=== PATIENT | female | born 1970 | race Caucasian/White ===

== ENCOUNTER 2016-10-11 20:37 | Inpatient (IN) ==
[2016-10-11] MEDS ORDERED: *HR* HYDROmorphone (PF) 1 MG/ML SYRINGE IM ONE (20:54)
[2016-10-11] MEDS ORDERED: Ondansetron ODT 4 MG TAB.RAPDIS SL ONE (20:58)
--- NOTE | 2016-10-11 20:59 | Emergency Department Note ---
Disposition Clinical Impression: Pancreatitis Disposition: Admitted As Inpatient Condition: Good Time of Disposition: 00:22 Abdominal Pain HPI - General Chief Complaint: ED Abdominal Pain Stated Complaint: lower right abdominal pain Time Seen by Provider: 10/11/16 20:46 Source: patient Mode of arrival: wheelchair Limitations: no limitations Nursing Notes Reviewed: Yes Vital Signs Reviewed: Yes - History of Present Illness HPI Narrative: Patient presents to the ED with the chief complaint of right-sided abdominal pain. Patient states that she has had chronic pain type syndromes for the last several years. She has a history of fibromyalgia and takes Soma and benzodiazepines. She has been living in [place] for the last 12-14 years. She states that since September 18 of this year. She has been having abdominal issues. She originally started having suprapubic pain at that time. She went to an emergency department in [place] on September 19 and had normal blood work, but a CT scan showed bladder wall thickening. She reports no dysuria but she has had frequency and urgency. States she was given some antibiotics. The pain has since continued intermittently. Associated with intermittent fevers, but none within the last 2 weeks. She has also been having decreased appetite, intermittent vomiting and diarrhea. States anytime she eats anything it will "go straight through me." No melena or hematochezia. She states that she was reaching for her headphones today and had the acute onset of right upper quadrant pain. She describes it as achy, but also sharp and stabbing. Located just underneath her costal margin on the right. Worse with movement. Just complains of right lower abdominal pain with similar descriptions. No fevers in the last few days. States she is only had crackers in the last week for food , although she had soup today. She has had previous small bowel obstruction with subsequent partial small bowel resection. She states that she does not remember what that felt like but this could be similar. She also states that she is very anxious, but has not taken any of her benzodiazepines today. She also reports that on September 22. She had her IUD removed which had been in place for 4 years. She had a very small amount of vaginal bleeding after that, but has had none since September 23. No further vaginal bleeding or discharge. No new recent sexual partners. Pain Scale: 9 - Related Data Home Medications Medication Instructions Recorded Confirmed Atenolol [Tenormin] 50 mg PO DAILY 10/11/16 10/11/16 Carisoprodol [Soma] 350 mg PO 10/11/16 Tramadol HCl [Ultram] 100 mg PO QID PRN 10/11/16 10/11/16 clonazePAM [Clonazepam] 1 mg PO 10/11/16 Allergies Allergy/AdvReac Type Severity Reaction Status Date / Time promethazine [From Phenergan] Allergy Hallucinati Verified 10/11/16 20:45 ng All systems ED: reviewed and negative except as stated. Constitutional: Reports: fever (Intermittent) Eyes: Denies: vision change Cardiovascular: Denies: chest pain, palpitations, dyspnea on exertion Respiratory: Denies: dyspnea Gastrointestinal: Reports: abdominal pain, nausea (Intermittent), vomiting ( Intermittent), diarrhea. Denies: melena, hematochezia Genitourinary: Reports: urgency, frequency Musculoskeletal: Denies: back pain Integumentary: Denies: rash Neurological: Denies: headache Psychiatric: Reports: anxiety Abdominal Pain PMH - Past Medical History Medical history: Reports: fibromyalgia, hypertension, thyroid disease Female Surgical History: Reports: appendectomy, , Tonsillectomy, other Psychiatric history: Reports: anxiety - Social History Smoking status: Current every day smoker Alcohol use: Reports: occasionally Drug use: Reports: none Physical Exam - General Limitations: no limitations General appearance: alert, in no apparent distress - Head Head exam: atraumatic, normocephalic, normal inspection - Eye Eye exam: Present: normal appearance, PERRL, EOMI - ENT ENT exam: normal exam, normal oropharynx, mucous membranes moist - Neck Neck exam: Present: normal inspection, full ROM, trachea midline - Chest Chest inspection: Present: normal inspection, symmetric chest wall rise - Respiratory Respiratory exam: Present: normal lung sounds bilaterally - Cardiovascular Cardiovascular exam: Present: regular rate, normal rhythm, normal heart sounds - Abdominal Exam Abdominal exam: Present: soft, tenderness, Anaya's sign. Absent: distention, guarding, rebound Abdominal tenderness: Present: RUQ, suprapubic, moderate - Extremities Exam Extremities exam: Present: normal inspection, full ROM. Absent: tenderness, pedal edema - Back Exam Back exam: Present: normal inspection, full ROM. Absent: tenderness - Neurological Exam Neurological exam: Present: alert, oriented X3 - Psychiatric Psychiatric exam: Present: anxious - Skin Skin exam: Present: warm, dry, intact, normal color Course Course Narrative: 46-year-old female with very convoluted story of abdominal pain since the seventh of this month. She is tender in her epigastrium or right upper quadrants. We will check labs and CT her belly and give pain control. Disposition pending - Reevaluation(s) Reevaluation #1: Lipase is elevated, CT is normal, pain is better under control, however, not completely gone, we will admit for new onset pancreatitis. No history of alcohol abuse Vital Signs Temperature 97.5 F L 10/11/16 20:39 Pulse Rate 96 10/11/16 20:39 Respiratory Rate 18 10/11/16 20:39 Blood Pressure 141/93 10/11/16 20:39 O2 Sat by Pulse Oximetry 97 10/11/16 20:39 Temperature 97.5 F L 10/11/16 20:39 Pulse Rate 58 10/11/16 22:50 Respiratory Rate 18 10/11/16 22:50 Blood Pressure 160/92 10/11/16 22:50 O2 Sat by Pulse Oximetry 96 10/11/16 22:05 Oxygen Delivery Oxygen Delivery Room Air Abdominal Pain - Medical Records Medical records reviewed: Yes I reviewed the patient's medical records. - Lab Data Lab results reviewed: Yes I reviewed the patient's lab results. Result diagrams: 10/11/16 21:47 10/11/16 21:47 Lab Results 10/11/16 10/11/16 10/11/16 Range/Units 20:55 20:55 21:47 WBC 4.5 (4.3-11.1) K/mcL RBC 4.16 (3.82-4.97) M/mcL Hgb 12.9 (11.5-15.4) g/dL Hct 39.0 (35.3-44.9) % MCV 93.8 (83.0-100.0) fL MCH 31.0 (28.0-33.3) pg MCHC 33.1 (31.6-35.5) g/dL RDW 12.5 (11.5-14.5) % Plt Count 154 (140-400) K/mcL MPV 10.5 (9.4-12.4) fL Immature Gran % 0.2 (0-4) % Seg Neutrophils % 30.7 % Lymphocytes % 57.9 % Monocytes % 8.5 % Eosinophils % 1.8 % Basophils % 0.9 % Neutrophils # 1.4 L (1.6-8.9) K/mcL Lymphocytes # 2.6 (0.6-4.6) K/mcL Monocytes # 0.4 (0.0-1.3) K/mcL Eosinophils # 0.1 (0.0-0.6) K/mcL Basophils # 0.0 (0.0-0.2) K/mcL Sodium (136-145) mEq/L Potassium (3.5-4.5) mEq/L Chloride (98-109) mEq/L Carbon Dioxide (19-29) mEq/L BUN (7-20) mg/dL Creatinine (0.57-1.11) mg/dL Est GFR ( Amer) (> 60) Est GFR (Non-Af Amer) (> 60) BUN/Creatinine Ratio (6-26) Glucose (70-99) mg/dL Calculated Osmolality (280-300) Calcium (8.6-10.8) mg/dL Total Bilirubin (0.2-1.2) mg/dL Direct Bilirubin (0.0-0.5) mg/dL Indirect Bilirubin (0.0-1.2) mg/dL AST (5-34) Units/L ALT (0-55) Units/L Alkaline Phosphatase (38-126) Units/L Serum Total Protein (6.0-8.3) g/dL Albumin (3.5-5.0) g/dL Globulin (2.4-3.5) g/dL Albumin/Globulin Ratio (1.1-2.2) Lipase (8-78) Units/L Urine Color Yellow (Yellow) Urine Clarity Clear (Clear) Urine pH 7.0 (5.0-8.0) pH Units Ur Specific [place] 1.007 L (1.010-1.025) Urine Protein Negative (Neg-Trace) mg/dL Urine Glucose (UA) Normal (Normal) mg/dL Urine Ketones Negative (Negative) mg/dL Urine Blood Trace H (Negative) Urine Nitrite Negative (Negative) Urine Bilirubin Negative (Negative) Urine Urobilinogen Normal (Normal) mg/dL Ur Leukocyte Esterase Negative (Negative) Urine Microscopic RBC 0-3 (0-3) per hpf Urine Microscopic WBC 0-3 (0-3) per hpf Ur Squamous Epith Cells Many H (None-Few) per lpf Urine Bacteria None Seen (None-Few) per hpf Hyaline Casts None Seen (None-Few) per lpf Ur Culture Indicated? NO (NO) Urine Test Negative (Negative) 10/11/16 Range/Units 21:47 WBC (4.3-11.1) K/mcL RBC (3.82-4.97) M/mcL Hgb (11.5-15.4) g/dL Hct (35.3-44.9) % MCV (83.0-100.0) fL MCH (28.0-33.3) pg MCHC (31.6-35.5) g/dL RDW (11.5-14.5) % Plt Count (140-400) K/mcL MPV (9.4-12.4) fL Immature Gran % (0-4) % Seg Neutrophils % % Lymphocytes % % Monocytes % % Eosinophils % % Basophils % % Neutrophils # (1.6-8.9) K/mcL Lymphocytes # (0.6-4.6) K/mcL Monocytes # (0.0-1.3) K/mcL Eosinophils # (0.0-0.6) K/mcL Basophils # (0.0-0.2) K/mcL Sodium 140 (136-145) mEq/L Potassium 3.7 (3.5-4.5) mEq/L Chloride 110 H (98-109) mEq/L Carbon Dioxide 21 (19-29) mEq/L BUN 10 (7-20) mg/dL Creatinine 0.94 (0.57-1.11) mg/dL Est GFR ( Amer) > 60 (> 60) Est GFR (Non-Af Amer) > 60 (> 60) BUN/Creatinine Ratio 11 (6-26) Glucose 81 (70-99) mg/dL Calculated Osmolality 288 (280-300) Calcium 8.5 L (8.6-10.8) mg/dL Total Bilirubin 0.6 (0.2-1.2) mg/dL Direct Bilirubin 0.2 (0.0-0.5) mg/dL Indirect Bilirubin 0.4 (0.0-1.2) mg/dL AST 17 (5-34) Units/L ALT 16 (0-55) Units/L Alkaline Phosphatase 58 (38-126) Units/L Serum Total Protein 6.7 (6.0-8.3) g/dL Albumin 3.5 (3.5-5.0) g/dL Globulin 3.2 (2.4-3.5) g/dL Albumin/Globulin Ratio 1.1 (1.1-2.2) Lipase 240 H (8-78) Units/L Urine Color (Yellow) Urine Clarity (Clear) Urine pH (5.0-8.0) pH Units Ur Specific [place] (1.010-1.025) Urine Protein (Neg-Trace) mg/dL Urine Glucose (UA) (Normal) mg/dL Urine Ketones (Negative) mg/dL Urine Blood (Negative) Urine Nitrite (Negative) Urine Bilirubin (Negative) Urine Urobilinogen (Normal) mg/dL Ur Leukocyte Esterase (Negative) Urine Microscopic RBC (0-3) per hpf Urine Microscopic WBC (0-3) per hpf Ur Squamous Epith Cells (None-Few) per lpf Urine Bacteria (None-Few) per hpf Hyaline Casts (None-Few) per lpf Ur Culture Indicated? (NO) Urine Test (Negative) - Radiology Data Radiology results reviewed: Yes I reviewed the patient's radiology results. - EKG Data EKG attestation: Yes I reviewed and interpreted this EKG. EKG results narrative: Sinus bradycardia, rate 43, PA interval 143, QRS 88, QTC 374, normal axis, no ischemic changes Attestation Statement - Attestation Attestation: I, Manjit León, examined this patient and my medical decision-making was reviewed with the RUBBER MOLDER/PA/Advanced Practice Nurse/Resident Physician. I agree with the documented findings, disposition and treatment plan as described except to the extent set forth below. 46-year-old female presents with multiple complaints. Patient states that she has had epigastric and right upper quadrant pain intermittently over the past 2- 3 weeks. Patient states she was diagnosed as possible gallbladder disease however she did not obtain an ultrasound at that time. He has been eating soups since that time however she has continued pain with by mouth intake. Patient also reports a history of persistent diarrhea over the past few months. She denies hematochezia or melena. No history of Crohn's disease or ulcerative colitis. On physical exam the patient has tenderness to palpation of the epigastrium in the right upper quadrant as well as suprapubic region. Patient does not have rigidity, guarding, or rebound however. Laboratory evaluation reveals elevated lipase 3 times normal limits. AST, ALT and alkaline phosphatase are within normal limits. Urinalysis does not show evidence of urinary tract infection. CT of the abdomen did not show acute surgical pathology. Patient is comfortable with the plan for admission to the hospital for IV fluids and further care and evaluation of her pancreatitis with likely ultrasound for further evaluation of possible gallbladder disease.
[2016-10-11 21:20] LABS: Bilirubin,Urine Negative (Negative); Blood,Urine Trace (Negative); Clarity,Urine Clear (Clear); Color,Urine Yellow (Yellow); Glucose,Urine (UA) Normal (Normal); Ketones,Urine Negative (Negative); Leukocyte Esterase,Urine Negative (Negative); Nitrite,Urine Negative (Negative); Protein,Urine Negative (Neg-Trace); Specific Gravity,Urine 1.007 (1.010-1.025); Urobilinogen,Urine Normal (Normal)
[2016-10-11 21:22] LABS: Bacteria,Urine None Seen per hpf (None-Few); Hyaline Casts,Urine None Seen per lpf (None-Few); RBC,Urine 0-3 per hpf (0-3); Squamous Epithelial Cell,Urine Many per lpf (None-Few); WBC,Urine 0-3 per hpf (0-3)
[2016-10-11] MEDS ORDERED: 0.9 % Sodium Chloride 1,000 ML IVC ONE (21:27)
[2016-10-11] MEDS ORDERED: GI Cocktail 40 ML EACH PO ONE (21:27)
[2016-10-11] MEDS ORDERED: *HR* LORazepam 2 MG/ML VIAL IVP ONE (21:46)
[2016-10-11 22:05] LABS: Basophils % 0.9 %; Eosinophils # 0.1 K/mcL (0.0-0.6); Eosinophils % 1.8 %; Hemoglobin 12.9 g/dL (11.5-15.4); Immature Granulocytes % 0.2 % (0-4); Lymphocytes # 2.6 K/mcL (0.6-4.6); Lymphocytes % 57.9 %; Mean Corpuscular HGB Conc 33.1 g/dL (31.6-35.5); Mean Corpuscular Volume 93.8 fL (83.0-100.0); Mean Platelet Volume 10.5 fL (9.4-12.4); Monocytes # 0.4 K/mcL (0.0-1.3); Monocytes % 8.5 %; Neutrophils # 1.4 K/mcL (1.6-8.9); Platelet Count 154 K/mcL (140-400); Red Blood Count 4.16 M/mcL (3.82-4.97); Red Cell Distribution Width 12.5 % (11.5-14.5); Segmented Neutrophils % 30.7 %
[2016-10-11 22:21] LABS: Alanine Aminotransferase 16 Units/L (0-55); Albumin 3.5 g/dL (3.5-5.0); Albumin/Globulin Ratio 1.1 (1.1-2.2); Alkaline Phosphatase 58 Units/L (38-126); Aspartate Amino Transferase 17 Units/L (5-34); BUN/Creatinine Ratio 11 (6-26); Bilirubin,Direct 0.2 mg/dL (0.0-0.5); Bilirubin,Indirect 0.4 mg/dL (0.0-1.2); Bilirubin,Total 0.6 mg/dL (0.2-1.2); Blood Urea Nitrogen 10 mg/dL (7-20); Calcium 8.5 mg/dL (8.6-10.8); Carbon Dioxide 21 mEq/L (19-29); Chloride 110 mEq/L (98-109); Globulin 3.2 g/dL (2.4-3.5); Glucose 81 mg/dL (70-99); Lipase 240 Units/L (8-78); Osmolality,Calculated 288 (280-300); Potassium 3.7 mEq/L (3.5-4.5); Sodium 140 mEq/L (136-145); Total Protein 6.7 g/dL (6.0-8.3); eGFR For African Americans > 60 (> 60); eGFR For Non-African Americans > 60 (> 60)
[2016-10-12] MEDS ORDERED: Carisoprodol 350 MG TABLET PO PRN (00:50)
[2016-10-12] MEDS ORDERED: Naloxone 0.4 MG/ML INJ IVP PRN (00:52)
[2016-10-12] MEDS ORDERED: clonazePAM 1 MG TABLET PO ONE (00:56)
--- NOTE | 2016-10-12 00:58 | Internal Med History&Physical ---
Date of Encounter: 10/12/16 Time of Encounter: 00:57 Assessment and Plan (1) Acute pancreatitis Current visit: Yes Status: Acute IVF, bowel rest with NPO, follow symptoms +/- lipase, check lipid panel a.m, consult GI to w/u etiology. No overt evidence of biliary pathology or alcoholism Qualifiers: Qualified Code(s): K85.90 - Acute pancreatitis without necrosis or infection , unspecified (2) Fibromyalgia syndrome Current visit: Yes Status: Acute continue soma. Also uses klonopin [facility] for sleep Internal Medicine - H&P: HPI Chief complaint: Abdominal pain, anorexia History of present illness: Ms. Garcia is a 46 year old female with hx of fibromyalgia who has recently moved from [place] to [place] to be with her father was triaged at the ED for symptoms of anorexia, abdominal pain for 3-4 weeks. Found to have acute on subacute pancreatitis. Symptoms began around September 18, 2016 where she had not been eating for 3-4 weeks with no appetite that is associated with epigastric quality pain. Sharp quality with radiation into the back. Also noted diarrhea 3-4 weeks associated with intermittent nause and clear emesis. Denies any alcohol hx. No overt gallbladder issues. CT A/P with unremarkable Past Med Surg Social Fam HX - Past Medical History Medical history: fibromyalgia, hypertension, thyroid disease Psychiatric history: anxiety - Social History Smoking Status: Current every day smoker Alcohol use: occasionally Drug use: none Internal Medicine - H&P: Meds Atenolol [Tenormin] 50 mg PO DAILY 10/11/16 [History] Carisoprodol [Soma] 350 mg PO 10/11/16 [History] Tramadol HCl [Ultram] 100 mg PO QID PRN 10/11/16 [History] clonazePAM [Clonazepam] 1 mg PO 10/11/16 [History] Allergies promethazine [From Phenergan] Allergy (Verified 10/11/16 20:45) Hallucinating All Systems PM: A 10-system review of systems was performed and is negative for pertinent findings except as documented above in the HPI. Review of systems: ROS 14 point review of systems reviewed as best as possible given presentation. Pertinent positive or negative as per HPI or otherwise reviewed as negative - Constitutional Vitals: Temp Pulse Resp BP Pulse Ox 97.5 F L 58 0 0/0 96 10/11/16 20:39 10/11/16 22:50 10/12/16 00:48 10/12/16 00:48 10/11/16 22:05 Exam: General - AAO x 3 Psych - Appropriate affect/speech. No agitation Eyes - ISAIAS. Eye lids intact. No scleral icterus ENT - Oral mucosa pink, dentition intact. External ear clear/dry/intact. No thyromegaly Lymphatics - No cervical/inguinal lympadenopathy Neuro - No gross peripheral or central neuro deficits with intact CN 2-12 exam Heart - Sinus. RRR. S1 and S2 present. No added HS/murmurs appreciated. No elevated JVD appreciated. No calf swellings/erythema Lung - Adequate air entry b/l, No crackes/wheezes appreciated GI - epigastric pain, no guarding or rigidity. No hepatosplenomegaly/ascities. BS+ - No CVA/suprapubic tenderness or palpable bladder distension Skin - Intact. No rash/petechiae/ecchymosis. Warm extremities MSK - Joints with normal ROM. No joint swellings Internal Med - H&P Results - Labs CBC & Chem 7: 10/11/16 21:47 10/11/16 21:47
[2016-10-12] MEDS: 0.9 % Sodium Chloride 1,000 ML IVC SCH ×3 (01:36→17:22)
[2016-10-12] MEDS: *HR* Morphine 2 MG/ML SYRINGE IVP PRN ×4 (02:12→14:56)
[2016-10-12 04:39] LABS: Hematocrit 38.2 % (35.3-44.9); Hemoglobin 12.3 g/dL (11.5-15.4); Mean Corpuscular HGB Conc 32.2 g/dL (31.6-35.5); Mean Corpuscular Hemoglobin 30.9 pg (28.0-33.3); Mean Platelet Volume 10.6 fL (9.4-12.4); Platelet Count 134 K/mcL (140-400); Red Blood Count 3.98 M/mcL (3.82-4.97); Red Cell Distribution Width 12.6 % (11.5-14.5); Segmented Neutrophils % 34.8 %
[2016-10-12 04:40] LABS: Basophils % 0.9 %; Eosinophils # 0.1 K/mcL (0.0-0.6); Eosinophils % 1.6 %; Immature Granulocytes % 0.2 % (0-4); Lymphocytes # 2.4 K/mcL (0.6-4.6); Lymphocytes % 55.2 %; Monocytes # 0.3 K/mcL (0.0-1.3); Monocytes % 7.3 %; Neutrophils # 1.5 K/mcL (1.6-8.9)
[2016-10-12 04:55] LABS: BUN/Creatinine Ratio 9 (6-26); Blood Urea Nitrogen 8 mg/dL (7-20); Calcium 7.7 mg/dL (8.6-10.8); Carbon Dioxide 22 mEq/L (19-29); Chloride 113 mEq/L (98-109); Chol/HDL Ratio 5.6 (0-4.9); Cholesterol 140 mg/dL (< 200); Glucose 80 mg/dL (70-99); HDL Cholesterol 25 mg/dL (40-59); LDL Cholesterol,Calculated 92 mg/dL (0-99); Osmolality,Calculated 285 (280-300); Potassium 3.7 mEq/L (3.5-4.5); Sodium 139 mEq/L (136-145); Triglycerides 116 mg/dL (< 150); eGFR For African Americans > 60 (> 60); eGFR For Non-African Americans > 60 (> 60)
[2016-10-12] MEDS: traMADol 50 MG TABLET PO PRN (06:51)
[2016-10-12] MEDS: *HR* Enoxaparin 40 MG/0.4 ML SYRINGE SQ SCH (06:51)
[2016-10-12] MEDS: Pantoprazole 40 MG VIAL IVP SCH (06:51)
[2016-10-12 08:21] LABS: Alanine Aminotransferase 12 Units/L (0-55); Albumin 2.9 g/dL (3.5-5.0); Alkaline Phosphatase 52 Units/L (38-126); Aspartate Amino Transferase 16 Units/L (5-34); Bilirubin,Direct 0.1 mg/dL (0.0-0.5); Bilirubin,Indirect 0.4 mg/dL (0.0-1.2); Bilirubin,Total 0.5 mg/dL (0.2-1.2); Globulin 2.9 g/dL (2.4-3.5); Total Protein 5.8 g/dL (6.0-8.3)
[2016-10-12] MEDS ORDERED: Nicotine 7 MG PATCH.TD24 TD SCH (09:00)
--- NOTE | 2016-10-12 10:20 | Event Note ---
Date of Encounter: 10/12/16 Time of Encounter: 10:20 46-year-old female with history of fibromyalgia, hypertension and hypothyroidism residence with complaints of epigastric and bilateral upper quadrant abdominal pain and diarrhea. Patient has a long-standing history of nonspecific lower abdominal pain, nausea and diarrhea, which have been intermittent with no specific diagnosis. Patient seen and examined at bedside. Reports ongoing abdominal pain, noted to be very irritable with medical staff. Chest-S1, S2 heard. Lungs are clear to auscultation. Abdomen-soft, nondistended, tenderness in epigastrium, left upper quadrant and right upper quadrant CT abdomen/pelvis shows no acute abnormality. Serum lipase noted to be elevated at 650. Liver function tests noted to be normal. Acute pancreatitis-uncertain etiology, to rule out gallstones. Patient denies alcohol use. Right upper quadrant ultrasound shows no evidence of cholelithiasis but shows 7 mm CBD dilation along with mild to moderate gallbladder distention. We will get MRCP to evaluate for choledocholithiasis. Continue bowel rest, IV hydration, supportive care with when necessary antiemetics and pain control. GI consult noted.
--- NOTE | 2016-10-12 11:23 | Gastroenterology Consult Note ---
<Jil Gross - Last Filed: 10/12/16 13:50> Date of Encounter: 10/12/16 Time of Encounter: 12:48 - Assessment and plan (1) Pancreatitis Current Visit: Yes Status: Acute Assessment and plan: Unclear etiology, r/o gb sludge/stones (US ordered), autoimmune. Continue supportive care. Qualifiers: Chronicity: acute Pancreatitis type: unspecified pancreatitis type Acute pancreatitis complication: no infection or necrosis Qualified Code(s): K85.90 - Acute pancreatitis without necrosis or infection, unspecified - Time Spent With Patient Total time spent is greater than 50% in coordination of care (as documented) at patient's floor/unit and/or counseling patient: less than 15 minutes GI History of Present Illness - Data of Consult Patient: new to practice Consult date: 10/12/16 Requesting Physician: Yamila Segura MD - Consult Narrative Reason for consult: pancreatitis History of present illness: Ms. Garcia is a 46 year old female with hx of fibromyalgia who has residences in both [place] and [place] triaged at the ED for symptoms of anorexia, abdominal pain for 3-4 weeks. Found to have acute on subacute pancreatitis. Symptoms began around September 18, 2016 where she had not been eating for 3-4 weeks with no appetite that is associated with epigastric quality pain. Sharp quality with radiation into the back. Also noted diarrhea 3-4 weeks associated with intermittent nause and clear emesis. Denies any alcohol hx. No overt gallbladder issues. CT A/P with unremarkable. Lipase 650 today which is increased over yesterday. normal triglycerides, calcium low. Patient denies regular etoh consumption. She states she had bowel resection for an ileus about 18 years ago. Denies prior endoscopies. States she has had symptoms now for about 1 month, being seen in [place], by PCP, obgyn in recent past. She has tried acid reducers, imodium for diarrhea, but the symptoms continued. Her specific complaints include N/V/D and abdominal pain. She admits some acid reflux symptoms periodically. Denies blood in both stools or emesis. Colonoscopy: None EGD: None Past Med Surg Social Fam HX - Past Medical History Medical history: fibromyalgia, hypertension, thyroid disease Psychiatric history: anxiety - Past Surgical History Surgical History: , orthopedic, other - Social History Smoking Status: Current every day smoker Packs per day: 1/2 Alcohol use: occasionally Drug use: none - Gastrointestinal NSAID use: none Anticoagulation Use: none Number of BM Per Day: every 3 days Gastrointestinal: Present: abdominal pain, diarrhea, dyspepsia, nausea, vomiting - Constitutional Constitutional: anorexia - EENT Eyes: as per HPI Ears: Present: as per HPI Nose, mouth and throat: Present: as per HPI - Cardiovascular Cardiovascular ROS: Present: as per HPI - Respiratory Respiratory IM: Present: as per HPI - Hematologic/Lymphatic Hematologic/Lymphatic pediatric: Present: as per HPI - Musculoskeletal Musculoskeletal ROS GI: Present: as per HPI - Integumentary Integumentary GI: Present: as per HPI - Psychiatric ROS Psychiatric GI: Present: as per HPI - Endocrine Endocrine IM: Present: as per HPI - Constitutional Vitals: Temp Pulse Resp BP Pulse Ox 97.7 F 47 14 130/78 98 10/12/16 11:20 10/12/16 11:20 10/12/16 11:20 10/12/16 11:20 10/12/16 11:20 General appearance: Present: cooperative, A&O X 3, no acute distress, answers questions appropriately - Head Head exam: Present: atraumatic, normocephalic - Eye Eye exam: Present: normal appearance, sclera anicteric - ENT ENT exam: Present: mucous membranes moist - Neck Neck exam general surgery: Present: normal inspection, trachea midline - Respiratory Respiratory exam: Present: CTAB - Cardiovascular Cardiovascular exam: Present: RRR, +S1, +S2 - GI/Abdominal GI/Abdominal exam: Present: hyperactive bowel sounds, soft, tenderness, no peritoneal signs - Rectal Rectal exam: Present: deferred - Extremities Exam Extremities exam: Present: warm - Neurological Exam Neurological exam: Present: no focal deficits - Psychiatric Psychiatric exam: Present: normal affect, normal mood - Skin Skin exam: Present: dry, intact, normal color, warm Results - Labs CBC & Chem 7: 10/12/16 04:06 10/12/16 04:06 Labs: Last Result Calcium 7.7 mg/dL (8.6-10.8) L 10/12/16 04:06 Triglycerides 116 mg/dL (< 150) 10/12/16 04:06 Entire Visit Hgb 12.3 g/dL (11.5-15.4) 10/12/16 04:06 Hct 38.2 % (35.3-44.9) 10/12/16 04:06 Total Bilirubin 0.5 mg/dL (0.2-1.2) 10/12/16 04:06 AST 16 Units/L (5-34) 10/12/16 04:06 ALT 12 Units/L (0-55) 10/12/16 04:06 Lipase 650 Units/L (8-78) H 10/12/16 04:06 Consult Discharge Plan - Plan Referrals: NONE,PCP [Primary Care Provider] - <Jaret Alcazar - Last Filed: 10/12/16 17:33> Date of Encounter: 10/12/16 Time of Encounter: 18:00 - Time Spent With Patient Total time spent is greater than 50% in coordination of care (as documented) at patient's floor/unit and/or counseling patient: GI History of Present Illness - Data of Consult Requesting Physician: Yamila Segura MD - Consult Narrative History of present illness: Ms. Garcia is a 46 year old female - Constitutional Vitals: Temp Pulse Resp BP Pulse Ox 97.8 F 46 16 149/82 100 10/12/16 14:46 10/12/16 17:17 10/12/16 17:17 10/12/16 17:17 10/12/16 17:17 Results - Labs CBC & Chem 7: 10/12/16 04:06 10/12/16 04:06 Labs: Last Result Calcium 7.7 mg/dL (8.6-10.8) L 10/12/16 04:06 Triglycerides 116 mg/dL (< 150) 10/12/16 04:06 Entire Visit Hgb 12.3 g/dL (11.5-15.4) 10/12/16 04:06 Hct 38.2 % (35.3-44.9) 10/12/16 04:06 Total Bilirubin 0.5 mg/dL (0.2-1.2) 10/12/16 04:06 AST 16 Units/L (5-34) 10/12/16 04:06 ALT 12 Units/L (0-55) 10/12/16 04:06 Lipase 650 Units/L (8-78) H 10/12/16 04:06 - Impressions Impressions Abdomen Ultrasound 10/12/16 13:00 IMPRESSION: 1. No evidence of cholelithiasis. 2. Mild-moderate distension of the gallbladder with minimal prominence of caliber of extrahepatic biliary tree/common duct. Exact etiology of the finding is indeterminate. Correlation with liver function tests would be helpful. If clinically indicated, follow-up MRCP may be helpful for more complete evaluation of the distal common duct. D/ / 10/12/2016 14:26:00 Davon Wilkes MD / latasha Interpreting Provider: Davon Wilkes MD - Attending Attestation I examined this patient and my medical decision-making was reviewed with the Resident Physician. I agree with the documented findings, disposition and treatment plan as described except to the extent set forth below. Patient with recurrent pancreatitis. Does has mild tenderness in the right upper quadrant. Had pancreatitis in the past. Ultrasound gallbladder unremarkable other than mildly dilated CBD and patient going for MRCP. If MRCP negative then we will recommend gallbladder removal because of the recurrent nature of her pancreatitis to make sure the gallbladder is not playing a role in her etiology
[2016-10-12] MEDS ORDERED: *HR* LORazepam 2 MG/ML VIAL IVP PRN (11:54)
[2016-10-12] MEDS: *HR* HYDROmorphone (PF) 1 MG/ML SYRINGE IVP PRN ×2 (17:20→21:20)
--- NOTE | 2016-10-12 17:55 | Electrocardiograph Report ---
[address] [place], [place] [address] Test Date: 2016-10-11 Pat Name: Anne Marie Garcia Department: 104 Room: 3A Gender: F Retort Loader: ANAND : 1970 Requested By: Cosme Pearce Order Number: [id number] Reading MD: Lucía Marques Measurements Intervals Diamond Rate: 43 P: 47 ND: 143 QRS: 18 QRSD: 88 T: 7 QT: 426 QTc: 374 Interpretive Statements SINUS BRADYCARDIA SHORT ND INTERVAL MINIMAL ST DEPRESSION Electronically Signed On 10-12-2016 17:53:33 EDT by Lucía Marques
[2016-10-12] MEDS ORDERED: D5% in Water 1,000 ML IVC PRN (19:58)
[2016-10-12] MEDS: clonazePAM 1 MG TABLET PO SCH (21:12)
[2016-10-12] MEDS: Carisoprodol 350 MG TABLET PO PRN (22:14)
[2016-10-12] MEDS: Nicotine 7 MG PATCH.TD24 TD SCH (23:18)
[2016-10-13] MEDS: *HR* Dextrose 50 % in Water (Syg) 50 ML SYRINGE IVP PRN ×4 (00:42→17:11)
[2016-10-13] MEDS: 0.9 % Sodium Chloride 1,000 ML IVC SCH ×4 (04:05→21:22)
[2016-10-13] MEDS: *HR* HYDROmorphone (PF) 1 MG/ML SYRINGE IVP PRN ×4 (04:09→19:06)
[2016-10-13] MEDS: Carisoprodol 350 MG TABLET PO PRN ×3 (04:43→21:21)
[2016-10-13 05:15] LABS: Eosinophils # 0.1 K/mcL (0.0-0.6); Eosinophils % 2.4 %; Hematocrit 39.9 % (35.3-44.9); Hemoglobin 13.1 g/dL (11.5-15.4); Immature Granulocytes % 0.2 % (0-4); Lymphocytes # 2.1 K/mcL (0.6-4.6); Lymphocytes % 49.3 %; Mean Corpuscular HGB Conc 32.8 g/dL (31.6-35.5); Mean Corpuscular Hemoglobin 31.3 pg (28.0-33.3); Mean Corpuscular Volume 95.2 fL (83.0-100.0); Mean Platelet Volume 10.7 fL (9.4-12.4); Monocytes # 0.3 K/mcL (0.0-1.3); Monocytes % 6.4 %; Neutrophils # 1.7 K/mcL (1.6-8.9); Nucleated Red Blood Cells 0.5 /100 WBC (0); Platelet Count 120 K/mcL (140-400); Red Blood Count 4.19 M/mcL (3.82-4.97); Red Cell Distribution Width 12.8 % (11.5-14.5); Segmented Neutrophils % 40.7 %
[2016-10-13 05:31] LABS: Alanine Aminotransferase 11 Units/L (0-55); Albumin 2.8 g/dL (3.5-5.0); Albumin/Globulin Ratio 0.9 (1.1-2.2); Alkaline Phosphatase 53 Units/L (38-126); Aspartate Amino Transferase 14 Units/L (5-34); BUN/Creatinine Ratio 9 (6-26); Bilirubin,Total 0.6 mg/dL (0.2-1.2); Blood Urea Nitrogen 7 mg/dL (7-20); Calcium 7.7 mg/dL (8.6-10.8); Carbon Dioxide 18 mEq/L (19-29); Chloride 115 mEq/L (98-109); Glucose 60 mg/dL (70-99); Lipase 103 Units/L (8-78); Osmolality,Calculated 286 (280-300); Potassium 3.8 mEq/L (3.5-4.5); Sodium 140 mEq/L (136-145); Total Protein 5.8 g/dL (6.0-8.3); eGFR For African Americans > 60 (> 60); eGFR For Non-African Americans > 60 (> 60)
[2016-10-13] MEDS: *HR* Enoxaparin 40 MG/0.4 ML SYRINGE SQ SCH (06:00)
[2016-10-13] MEDS: Pantoprazole 40 MG VIAL IVP SCH (06:02)
[2016-10-13] MEDS: traMADol 50 MG TABLET PO PRN (06:13)
[2016-10-13] MEDS: Nicotine 7 MG PATCH.TD24 TD SCH (07:55)
[2016-10-13] MEDS ORDERED: *HR* Morphine 2 MG/ML SYRINGE IVP PRN (11:21)
[2016-10-13] MEDS ORDERED: Clotrimazole 1% CRM 15 GM TUBE TP PRN (12:00)
[2016-10-13] MEDS ORDERED: *HR* HYDROmorphone (PF) 1 MG/ML SYRINGE IVP PRN (13:43)
--- NOTE | 2016-10-13 15:52 | Internal Med Progress Note ---
Date of Encounter: 10/13/16 Time of Encounter: 09:30 - Assessment and plan (1) Acute pancreatitis Current Visit: Yes Status: Acute Assessment and plan: Acute abdominal pain likely secondary to acute pancreatitis - improving, lipase level 103 Patient continues to have abdominal pain and nausea Continue IV fluids, IV Dilaudid as needed for pain, IV Zofran, IV pantoprazole Ultrasound pelvis - pending MRCP - distended gallbladder with no evidence of cholelithiasis or acute cholecystitis, dilation of common bile duct strictures and no filling defects GI consult - recommendations reviewed Qualifiers: Pancreatitis type: unspecified pancreatitis type Qualified Code(s): K85.90 - Acute pancreatitis without necrosis or infection, unspecified (2) Fibromyalgia syndrome Current Visit: Yes Status: Chronic Assessment and plan: Chronic, stable, patient wants to continue all her home medications (3) Essential hypertension Current Visit: Yes Status: Chronic Assessment and plan: Essential hypertension, controlled, continue home meds, monitor (4) Anxiety Current Visit: Yes Status: Chronic Assessment and plan: Chronic anxiety disorder - continue home meds - Time Spent With Patient less than 15 minutes - Subjective Interval history: Patient is awake and alert. Not in any distress. She is in discomfort due to abdominal pain. Denies chest pain or shortness of breath. She complains of lower abdominal pain which is dull and aching. She rates it 8 out of 10. It is almost generalized. Patient states this is due to her "intestines". She repeatedly states that she has had the history of intestinal surgery in the past and has had similar problems over the past several years. Patient states she takes pain medication and muscle relaxants and anxiolytics at home. Imaging and labs are now fairly benign. Lipase level is now improved. MRCP is negative. Ultrasound pelvis is pending. - Constitutional Vitals: Temp Pulse Resp BP Pulse Ox 98.1 F 63 16 164/99 98 10/13/16 14:11 10/13/16 14:11 10/13/16 14:11 10/13/16 14:11 10/13/16 14:11 General appearance: Present: A&O X 3, no acute distress, answers questions appropriately Exam: Generalized weakness, ill-appearing, mild discomfort due to abdominal pain. - Head Head exam: Present: atraumatic - Eye Eye exam: Present: EOMI - Neck Neck exam general surgery: Present: supple - Respiratory Respiratory exam: Present: CTAB. Absent: rhonchi, wheezes, tachypnea - Cardiovascular Cardiovascular exam: Present: RRR, +S1, +S2 - GI/Abdominal GI/Abdominal exam: Present: soft, tenderness (Left lower quadrant and umbilical and suprapubic tenderness), no peritoneal signs. Absent: distended, firm, guarding, rigid - Extremities Exam Extremities exam: Present: radial pulses palpable and symetrical. Absent: cyanotic, pedal edema, tenderness - Neurological Exam Neurological exam: Present: alert, oriented X3, no focal deficits. Absent: facial droop, speech deficit Internal Medicine: Result - Labs CBC & Chem 7: 10/13/16 05:03 10/13/16 05:03 Labs: Short CBC 10/13/16 Range/Units 05:03 WBC 4.2 L (4.3-11.1) K/mcL Hgb 13.1 (11.5-15.4) g/dL Hct 39.9 (35.3-44.9) % Plt Count 120 L (140-400) K/mcL Neutrophils # 1.7 (1.6-8.9) K/mcL BMP 10/13/16 05:03 Sodium 140 Potassium 3.8 Chloride 115 H Carbon Dioxide 18 L BUN 7 Creatinine 0.76 Glucose 60 L Calcium 7.7 L Liver Function 10/13/16 Range/Units 05:03 Total Bilirubin 0.6 (0.2-1.2) mg/dL AST 14 (5-34) Units/L ALT 11 (0-55) Units/L Alkaline Phosphatase 53 (38-126) Units/L Albumin 2.8 L (3.5-5.0) g/dL - Impressions Impressions Abdomen Ultrasound 10/12/16 13:00 IMPRESSION: 1. No evidence of cholelithiasis. 2. Mild-moderate distension of the gallbladder with minimal prominence of caliber of extrahepatic biliary tree/common duct. Exact etiology of the finding is indeterminate. Correlation with liver function tests would be helpful. If clinically indicated, follow-up MRCP may be helpful for more complete evaluation of the distal common duct. D/ / 10/12/2016 14:26:00 Davon Wilkes MD / latasha Interpreting Provider: Davon Wilkes MD Abdomen MRI 10/12/16 16:52 IMPRESSION: 1. Distended gallbladder with mild pericholecystic fluid. No evidence of cholelithiasis or acute cholecystitis. 2. Dilation of the common bile duct measuring up to 9 mm. No intraluminal filling defects or underlying stricture. 3. Underlying etiology of above findings cannot be determined on the current MRCP. D/ / David Valencia MD / David Valencia MD Interpreting Provider: David Valencia MD Consult Discharge Plan - Plan Referrals: Anushka Timmons DO [Resident] - 10/21/16 9:00 am
[2016-10-13] MEDS: Ondansetron 4 MG/2 ML VIAL IVP SCH (19:08)
[2016-10-13] MEDS: clonazePAM 1 MG TABLET PO SCH (21:21)
[2016-10-14] MEDS: *HR* HYDROcodone/Acet 5/325 mg TABLET PO PRN ×3 (00:22→11:37)
[2016-10-14] MEDS: Ondansetron 4 MG/2 ML VIAL IVP SCH ×5 (01:11→23:58)
[2016-10-14] MEDS: Pantoprazole 40 MG VIAL IVP SCH (07:15)
[2016-10-14] MEDS: *HR* Enoxaparin 40 MG/0.4 ML SYRINGE SQ SCH (07:15)
[2016-10-14 08:17] LABS: ANA IgG by ELISA DETECTED (None Detected)
[2016-10-14] MEDS: *HR* HYDROmorphone (PF) 1 MG/ML SYRINGE IVP PRN ×4 (09:45→23:58)
[2016-10-14] MEDS: Nicotine 7 MG PATCH.TD24 TD SCH (09:46)
[2016-10-14] MEDS: 0.9 % Sodium Chloride 1,000 ML IVC SCH ×2 (09:50→19:54)
[2016-10-14] MEDS: Carisoprodol 350 MG TABLET PO PRN ×2 (10:01→22:05)
[2016-10-14] MEDS: MetroNIDAZOLE 500 MG/100 ML 500 MG/100 ML BAG IVPB SCH ×2 (11:37→19:45)
[2016-10-14] MEDS: Ketorolac 15 MG/ML VIAL IVP PRN ×2 (14:04→22:14)
--- NOTE | 2016-10-14 16:39 | Internal Med Progress Note ---
Date of Encounter: 10/14/16 Time of Encounter: 10:45 - Assessment and plan (1) Acute pancreatitis Current Visit: Yes Status: Acute Assessment and plan: Acute abdominal pain likely secondary to acute pancreatitis - improving, lipase level 26 Patient continues to have abdominal pain and nausea - possible acute colitis Continue IV fluids, IV Dilaudid as needed for pain, IV Zofran, IV pantoprazole Empiric IV Flagyl, IV ciprofloxacin Ultrasound pelvis - endometrial stripe normal thickness, small amount of free fluid, left adnexal cyst measuring 1.8 cm MRCP - distended gallbladder with no evidence of cholelithiasis or acute cholecystitis, dilation of common bile duct strictures and no filling defects GI consult - recommendations reviewed Labs in a.m., anticipate discharge home in a.m. Qualifiers: Pancreatitis type: unspecified pancreatitis type Acute pancreatitis complication: unspecified Qualified Code(s): K85.90 - Acute pancreatitis without necrosis or infection, unspecified (2) Fibromyalgia syndrome Current Visit: Yes Status: Chronic Assessment and plan: Chronic, stable, patient wants to continue all her home medications (3) Essential hypertension Current Visit: Yes Status: Chronic Assessment and plan: Essential hypertension, controlled, continue home meds, monitor (4) Anxiety Current Visit: Yes Status: Chronic Assessment and plan: Chronic anxiety disorder - continue home meds - Time Spent With Patient 25 - 35 minutes - Subjective Interval history: Examined this morning. Patient is awake and alert. Not in any distress. Denies chest pain or shortness of breath. Complains of mild to moderate lower abdominal pain which is dull and aching. Rates it 5 out of 10. Patient states this is due to colitis. Tolerating clear liquids. No other acute events or complaints. She repeatedly states that she has had the history of intestinal surgery in the past and has had similar problems over the past several years. Patient states she takes pain medication and muscle relaxants and anxiolytics at home. Imaging and labs are fairly benign at this point. Lipase level is now normal. MRCP is negative. - Constitutional Vitals: Temp Pulse Resp BP Pulse Ox 98.1 F 55 16 134/79 97 10/14/16 15:56 10/14/16 15:56 10/14/16 15:56 10/14/16 15:56 10/14/16 15:56 General appearance: Present: A&O X 3, no acute distress, answers questions appropriately Exam: Generalized weakness, ill-appearing - Head Head exam: Present: atraumatic - Eye Eye exam: Present: EOMI - ENT ENT exam: Present: mucous membranes dry - Neck Neck exam general surgery: Present: supple - Respiratory Respiratory exam: Present: CTAB. Absent: rales, rhonchi, stridor, wheezes, tachypnea - Cardiovascular Cardiovascular exam: Present: RRR, +S1, +S2 - GI/Abdominal GI/Abdominal exam: Present: soft, tenderness (bouchra-Umbilical and suprapubic tenderness present), no peritoneal signs. Absent: distended, firm, guarding - Extremities Exam Extremities exam: Present: radial pulses palpable and symetrical. Absent: cyanotic, pedal edema, tenderness - Neurological Exam Neurological exam: Present: alert, oriented X3, no focal deficits Internal Medicine: Result - Labs CBC & Chem 7: 10/13/16 05:03 10/13/16 05:03 - Impressions Impressions Pelvis Ultrasound 10/13/16 20:00 IMPRESSION: Endometrial stripe is normal in thickness. A small amount of fluid is noted in the endometrial stripe, physiological versus hemorrhage. Previous right oophorectomy is noted. Left adnexal cyst measuring up to 1.8 cm, likely functional. Small to moderate amount of free fluid. This is nonspecific, still within the physiological range. D/ / Luc Kaminski MD / Luc Kaminski MD Interpreting Provider: Luc Kaminski MD Consult Discharge Plan - Plan Referrals: Anushka Timmons DO [Resident] - 10/21/16 9:00 am
[2016-10-14] MEDS: clonazePAM 1 MG TABLET PO SCH ×2 (19:55→22:05)
[2016-10-15] MEDS: MetroNIDAZOLE 500 MG/100 ML 500 MG/100 ML BAG IVPB SCH ×2 (04:19→11:43)
[2016-10-15] MEDS: *HR* HYDROmorphone (PF) 1 MG/ML SYRINGE IVP PRN ×2 (04:19→12:09)
[2016-10-15] MEDS: 0.9 % Sodium Chloride 1,000 ML IVC SCH (06:16)
[2016-10-15] MEDS: *HR* Enoxaparin 40 MG/0.4 ML SYRINGE SQ SCH (06:18)
[2016-10-15] MEDS: Ondansetron 4 MG/2 ML VIAL IVP SCH ×2 (06:19→11:42)
[2016-10-15] MEDS: Pantoprazole 40 MG VIAL IVP SCH (06:19)
[2016-10-15] MEDS: Carisoprodol 350 MG TABLET PO PRN ×2 (06:29→14:36)
[2016-10-15] MEDS: Ketorolac 15 MG/ML VIAL IVP PRN (09:08)
[2016-10-15] MEDS: Nicotine 7 MG PATCH.TD24 TD SCH (09:08)
[2016-10-15] MEDS ORDERED: Water for inj. (sterile) 10 ML IV ONE (10:22)
[2016-10-15 10:55] VITALS: BP 158/92
--- NOTE | 2016-10-15 13:46 | Discharge Summary ---
Date of Encounter: 10/15/16 Time of Encounter: 09:00 - Discharge Diagnosis (1) Acute pancreatitis Priority: Primary Status: Acute Comments: Now improved Qualifiers: Pancreatitis type: unspecified pancreatitis type Acute pancreatitis complication: unspecified Qualified Code(s): K85.90 - Acute pancreatitis without necrosis or infection, unspecified (2) Fibromyalgia syndrome Priority: Secondary Status: Chronic (3) Essential hypertension Priority: Secondary Status: Chronic (4) Anxiety Priority: Secondary Status: Chronic - Discharge Medications Prescriptions: Ciprofloxacin HCl [Cipro] 500 mg PO BID 7 Days HYDROcodone/Acet 5/325 mg [[place] 5-325 mg] 1 tab PO Q6H PRN #7 tab PRN Reason: Moderate Pain metroNIDAZOLE [Metronidazole] 500 mg PO TID 7 Days Nicotine Patch [Nicoderm] 7 mg TD DAILY #30 Pantoprazole Sodium [Protonix] 20 mg PO DAILY #30 tab Home Medications: Atenolol [Tenormin] 50 mg PO DAILY 10/11/16 [History] Carisoprodol [Soma] 175 - 350 mg PO Q8H PRN 10/11/16 [History] Tramadol HCl [Ultram] 50 - 100 mg PO Q6-8H PRN MDD ' 10/11/16 [History] clonazePAM [Clonazepam] 0.5 - 1 mg PO HS 10/11/16 [History] Ciprofloxacin HCl [Cipro] 500 mg PO BID 7 Days 10/15/16 [Rx] HYDROcodone/Acet 5/325 mg [[place] 5-325 mg] 1 tab PO Q6H PRN #7 tab 10/15/16 [Rx] Nicotine Patch [Nicoderm] 7 mg TD DAILY #30 10/15/16 [Rx] Pantoprazole Sodium [Protonix] 20 mg PO DAILY #30 tab 10/15/16 [Rx] metroNIDAZOLE [Metronidazole] 500 mg PO TID 7 Days 10/15/16 [Rx] Allergies/Adverse Reactions: Allergies promethazine [From Phenergan] Allergy (Verified 10/11/16 20:45) Hallucinating Procedures/tests Complete & Pending: Procedures Performed prior 72 hours Category Date Time Status US pelvic complete [US] Stat Exams 10/13/16 20:00 Completed abdominal ultrasound - limited [US abdomen limited] [US Exams 10/12/16 13:00 Completed ] Stat MR abdomen wo con [MR] Stat MRI 10/12/16 16:52 Completed Date of admission: 10/12/16 00:52 Primary care physician: PCP NONE Consults: 10/12/16 00:55 Consult to Gastroenterology [CONS] Routine Consulting Provider: Afshin Carrera Reason for Consult: pancreatitis Call Completed: No Anticipated date of discharge: 10/15/16 - Patient Status Disposition: Home, Self-Care Condition: Good Functional capacity at discharge: independent ambulation Overall status at discharge: patient is progressing back to baseline - Discharge Instructions Instructions: Ciprofloxacin (By mouth), Hydrocodone/Acetaminophen (By mouth), Metronidazole (By mouth), Pantoprazole (By mouth), Pancreatitis (DC) Follow Up With: Anushka Timmons DO [Resident] - 10/21/16 9:00 am - Diet and Activity Activity: resume usual activities as tolerated Diet: advance to your usual diet Hospital course: Ms. Garcia is a 46 year old female with past medical history of hypertension, fibromyalgia, chronic pain and thyroid disease. Patient presented to the ED with complaints of pain that started about 3-4 weeks ago. Symptoms have gradually worsened. She also complains of poor appetite and generalized weakness. Patient stated that her pain is mostly in the lower abdomen and she also has been having diarrhea for the past 2-4 weeks. Also complained of nausea and vomiting. Initial evaluation in the ED revealed elevated lipase level. CT of the abdomen and pelvis was negative. Ultrasound of abdomen was negative. MRCP was done and it revealed distended gallbladder with no evidence of acute cholecystitis or cholelithiasis, with no filling defects or stricture. Patient was kept nothing by mouth and started on IV fluids. She was on IV ordered as needed for pain. She was also on IV Zofran as needed for nausea and vomiting and also continued IV Protonix. Patient continued to complain of lower abdominal pain and ultrasound of pelvis was done. Pelvic ultrasound revealed normal endometrial stripe thickness, small amount of free fluid, left adnexal cyst measuring 1.8 cm. Patient was empirically started on IV Flagyl and IV ciprofloxacin. Her symptoms then slowly started to improve. Her diet was slowly advanced. She was tolerating oral diet well and ambulate well at the time of discharge. Patient stated that her symptoms were better and wanted to go home. She has been explained about her condition and plan of care. She understood and agreed. She was counseled about smoking cessation. She has been advised to follow up with her primary care physician. Patient understood and agreed. No family members at the time of discharge. No other acute events or complications during her stay in the hospital. Patient is being discharged in a stable condition. Time spent discussing smoking cessation with patient: 3 to 10 minutes - Time Spent with Patient Total time spent providing and/or coordinating discharge services: Less than 30 minutes - Constitutional Vitals: Temp Pulse Resp BP Pulse Ox 98.1 F 61 18 158/92 100 10/15/16 10:53 10/15/16 10:53 10/15/16 10:53 10/15/16 10:53 10/15/16 10:53 General appearance: Present: A&O X 3, pleasant, no acute distress, answers questions appropriately - Head Head exam: Present: atraumatic - Eye Eye exam: Present: EOMI - ENT ENT exam: Present: mucous membranes moist - Neck Neck exam general surgery: Present: supple - Respiratory Respiratory exam: Present: CTAB. Absent: rales, rhonchi, stridor, wheezes, tachypnea - Cardiovascular Cardiovascular exam: Present: RRR, +S1, +S3 - GI/Abdominal GI/Abdominal exam: Present: soft, tenderness (Mild suprapubic tenderness - now improved), no peritoneal signs. Absent: distended, firm, guarding, rigid - Extremities Exam Extremities exam: Present: radial pulses palpable and symetrical. Absent: cyanotic, pedal edema, tenderness - Neurological Exam Neurological exam: Present: alert, oriented X3, no focal deficits
== END 2016-10-15 16:12 | disposition home or self-care (01) | DRG 440 ==
LOC: 3ANU 20:37 → EMEROO 20:37 → 3ANU 10-12 00:58
PROVIDERS: ADMIT Internal Medicine Hematology & Oncology; ATTEND Internal Medicine

== ENCOUNTER 2021-06-04 03:19 | Inpatient (IN) ==
[2021-06-04 04:15] LABS: Bilirubin,Urine Negative (Negative); Blood,Urine Negative (Negative); Clarity,Urine Clear (Clear); Color,Urine Colorless (Yellow); Glucose,Urine (UA) Normal (Normal); Ketones,Urine Negative (Negative); Leukocyte Esterase,Urine Negative (Negative); Nitrite,Urine Negative (Negative); PH,Urine 6.5 pH Units (5.0-8.0); Protein,Urine Negative (Neg-Trace); Specific Gravity,Urine 1.009 (1.010-1.025); Urobilinogen,Urine Normal (Normal)
[2021-06-04 04:15] LABS: Hemoglobin 12.4 g/dL (11.5-15.4); Immature Granulocytes % 0.2 % (0-4)
[2021-06-04 04:18] LABS: Basophils % 0.7 %; Eosinophils # 0.2 K/mcL (0.0-0.6); Eosinophils % 2.9 %; Hematocrit 38.4 % (35.3-44.9); Immature Platelets 5.3 % (1.1-6.1); Lymphocytes # 2.4 K/mcL (0.6-4.6); Mean Corpuscular HGB Conc 32.3 g/dL (31.6-35.5); Mean Corpuscular Hemoglobin 31.1 pg (28.0-33.3); Mean Corpuscular Volume 96.2 fL (83.0-100.0); Mean Platelet Volume 10.5 fL (9.4-12.4); Monocytes # 0.4 K/mcL (0.0-1.3); Monocytes % 6.8 %; Neutrophils # 2.5 K/mcL (1.6-8.9); Platelet Count 133 K/mcL (140-400); Red Blood Count 3.99 M/mcL (3.82-4.97); Red Cell Distribution Width 13.2 % (11.5-14.5); Segmented Neutrophils % 45.4 %; White Blood Count 5.4 K/mcL (4.3-11.1)
[2021-06-04 04:24] LABS: Amphetamine Screen,Urine Negative ng/mL (Cutoff=1000); Barbiturate Screen,Urine Negative ng/mL (Cutoff=200); Benzodiazepines Screen,Urine Negative ng/mL (Cutoff=200); Cannabinoid Screen,Urine Negative ng/mL (Cutoff = 50); Cocaine Screen,Urine Negative ng/mL (Cutoff= 300); Opiate Screen,Urine Negative ng/mL (Cutoff=300); Phencyclidine Screen,Urine Negative ng/mL (Cutoff=25)
[2021-06-04] MEDS ORDERED: Nicotine 7 MG PATCH.TD24 TD ONE (04:30)
[2021-06-04 04:31] LABS: Estimated Average Glucose 111 mg/dl; Hemoglobin A1C 5.5 %
[2021-06-04 04:56] LABS: Acetaminophen < 10 mcg/mL (10-20); BUN/Creatinine Ratio 11 (6-26); Blood Urea Nitrogen 11 mg/dL (6-20); Calcium 8.2 mg/dL (8.6-10.3); Carbon Dioxide 24 mEq/L (23-29); Chloride 110 mEq/L (98-107); Chol/HDL Ratio 4.4 (0-4.9); Cholesterol 173 mg/dL (< 200); Ethanol < 10 mg/dL (Less than 10); Glucose 93 mg/dL (70-105); HDL Cholesterol 39 mg/dL (40-59); LDL Cholesterol,Calculated 96 mg/dL (< 100); Osmolality,Calculated 289 (280-300); Potassium 3.9 mEq/L (3.5-5.1); Salicylate < 2.5 mg/dL (15.0-30.0); Sodium 140 mEq/L (136-145); Triglycerides 188 mg/dL (< 150); eGFR For African Americans > 60 (> 60); eGFR For Non-African Americans 58 (> 60)
[2021-06-04 06:49] LABS: Influenza A PCR Negative (Negative); Influenza B PCR Negative (Negative); Resp. Syncytial Virus PCR Negative (Negative)
[2021-06-04 06:50] LABS: SARS-CoV-2 by PCR (In House) Negative (Negative)
[2021-06-04] MEDS ORDERED: *HR* LORazepam 1 MG TABLET PO PRN (09:13)
[2021-06-04] MEDS ORDERED: MOM Conc 10 ML UD.LIQ PO PRN (09:13)
[2021-06-04] MEDS ORDERED: Haloperidol Lactate 5 MG/ML VIAL IM PRN (09:13)
[2021-06-04] MEDS ORDERED: haloperidoL 5 MG TABLET PO PRN (09:13)
[2021-06-04] MEDS ORDERED: Ibuprofen 400 MG TABLET PO PRN (09:13)
[2021-06-04] MEDS ORDERED: Nicotine 2 MG GUM BC PRN (09:13)
[2021-06-04] MEDS ORDERED: *HR* LORazepam 2 MG/ML VIAL IM PRN (09:13)
[2021-06-04] MEDS ORDERED: Mag Hydrox/Al Hydrox/Simeth 30 ML UDC PO PRN (09:13)
[2021-06-04] MEDS ORDERED: traZODone 50 MG TABLET PO PRN (09:13)
[2021-06-04] MEDS ORDERED: Carisoprodol 350 MG TABLET PO PRN (09:19)
[2021-06-04] MEDS: atenoloL 50 MG TABLET PO SCH ×2 (14:25→20:42)
[2021-06-04] MEDS: Sucralfate 1 GM TABLET PO SCH ×2 (14:59→20:43)
[2021-06-04] MEDS: Carisoprodol 350 MG TABLET PO PRN (16:07)
[2021-06-04] MEDS: Pregabalin 75 MG CAPSULE PO SCH (20:44)
[2021-06-04] MEDS: hydrOXYzine pamoate 25 MG CAPSULE PO PRN (20:44)
[2021-06-04] MEDS: clonazePAM 1 MG TABLET PO PRN (21:35)
[2021-06-04] MEDS: traZODone 50 MG TABLET PO SCH (21:35)
[2021-06-05] MEDS: Carisoprodol 350 MG TABLET PO PRN ×3 (07:04→17:52)
[2021-06-05] MEDS: Sucralfate 1 GM TABLET PO SCH ×2 (08:06→21:54)
[2021-06-05] MEDS: Pregabalin 75 MG CAPSULE PO SCH ×2 (08:30→21:53)
[2021-06-05] MEDS: atenoloL 50 MG TABLET PO SCH ×2 (08:31→21:54)
[2021-06-05] MEDS: Nicotine 21 MG PATCH.TD24 TD SCH (10:47)
[2021-06-05] MEDS: clonazePAM 1 MG TABLET PO PRN (21:53)
[2021-06-05] MEDS: hydrOXYzine pamoate 25 MG CAPSULE PO PRN (21:54)
[2021-06-05] MEDS: traZODone 50 MG TABLET PO SCH (21:54)
[2021-06-06] MEDS: Pregabalin 75 MG CAPSULE PO SCH (08:25)
[2021-06-06] MEDS: atenoloL 50 MG TABLET PO SCH (08:25)
[2021-06-06] MEDS: Sucralfate 1 GM TABLET PO SCH (08:25)
[2021-06-06] MEDS: Carisoprodol 350 MG TABLET PO PRN ×2 (08:26→12:20)
[2021-06-06] MEDS: Nicotine 21 MG PATCH.TD24 TD SCH (08:26)
[2021-06-06 09:40] VITALS: BP 127/86; PULSE 65; TEMP 97.1; O2SAT 99
== END 2021-06-06 14:05 | disposition home or self-care (01) | DRG 751 ==
LOC: EMEROOARM 03:19 → 1ANU 09:26
PROVIDERS: ADMIT Psychiatry & Neurology Psychiatry; ATTEND Psychiatry & Neurology Psychiatry